=== PATIENT | male | born 1945 | race Two or more races ===

== ENCOUNTER 2021-07-19 11:35 | Outpatient (CLI) | payer OTHER | END 2021-07-19 11:55 | disposition home or self-care (01) | LOC: TOM 11:35 | PROVIDERS: ATTEND Internal Medicine Critical Care Medicine | DX: Q44.6 Cystic disease of liver (principal); I10 Essential (primary) hypertension; J44.9 Chronic obstructive pulmonary disease, unspecified; I48.19 Other persistent atrial fibrillation ==

== ENCOUNTER → 2021-08-04 | Outpatient (CLI) | payer OTHER | END | disposition home or self-care (01) | LOC: TOM 07:39 | DX: N28.1 Cyst of kidney, acquired (principal) ==

== ENCOUNTER 2021-09-16 07:40 | Outpatient (CLI) | payer OTHER | END 2021-09-16 07:51 | disposition home or self-care (01) | LOC: SONOGRAMA 07:40 | DX: R16.0 Hepatomegaly, not elsewhere classified (principal) ==

== ENCOUNTER 2023-01-30 12:25 | Emergency (ER) | payer OTHER ==
[~2023-01-30] VITALS: Ht 180.3 cm; Wt 81.2 kg
== END 2023-01-30 16:22 | disposition home or self-care (01) ==
LOC: ER 12:25
DX: M25.561 Pain in right knee (principal)

== ENCOUNTER 2023-02-02 13:24 | Outpatient (CLI) | payer OTHER | END 2023-02-02 13:50 | disposition home or self-care (01) | LOC: MRI 13:24 | PROVIDERS: ATTEND Orthopaedic Surgery | DX: S83.200A Bucket-handle tear of unspecified meniscus, current injury, right knee, initial encounter (principal) ==